=== PATIENT | female | born 1970 | race Caucasian/White ===

== ENCOUNTER 2016-10-08 12:27 | Emergency (ER) | payer MEDICAID ==
[~2016-10-08] VITALS: Ht 175.3 cm; Wt 76.7 kg
[2016-10-08 12:48] VITALS: BP 122/70
[2016-10-08] MEDS ORDERED: vitamins (12:55)
[2016-10-08 13:17] VITALS: BP 122/70
--- NOTE | 2016-10-08 14:50 | Emergency Room Report ---
History of Present Illness General Chief Complaint: General Complaint Source: Patient Present Illness HPI 46-year-old female presents to ED for evaluation. Patient states she has a history of cirrhosis and alcohol disease. Patient states she is here to get fluid from her abdomen removed. Patient has ascites. Patient states she was admitted to [facility] approximately one week ago but left. Patient will not clarify whether she was discharged or left AMA. Patient states she did not like it there so she did not want to come back. Patient states she was called back and told that she had a "blood infection" and was told to come back. Patient states she preferred to come here instead. Patient history alcohol last night. Denies any pain. Denies any fevers or chills. No other aggravating relieving factors. Denies any other assocaited symptoms. Allergies: Coded Allergies: No Known Allergies (Unverified , 10/08/16) Patient History Past Medical History: other - cirrhosis Past Surgical History: none Pertinent Family History: none Social History: Reports: alcohol use, Denies: drug use, smoking Last Menstrual Period: "None in years" Now: No Immunizations: UTD Reviewed Nursing Documentation: PMH: Agreed, PSxH: Agreed Review of Systems All Other Systems: negative except mentioned in HPI Physical Exam Vital Signs Date Time Temp Pulse Resp B/P Pulse Ox O2 Delivery O2 Flow Rate FiO2 10/08/16 12:33 98.4 108 18 122/70 95 Room Air Sp02 EP Interpretation: reviewed, normal General Appearance: no apparent distress, alert, GCS 15, non-toxic Head: normocephalic Eyes: bilateral eye PERRL, bilateral eye normal inspection ENT: normal ENT inspection Neck: normal inspection Respiratory: chest non-tender, lungs clear, normal breath sounds, speaking full sentences Cardiovascular #1: regular rate, rhythm, no edema Gastrointestinal: distended Rectal: deferred Genitourinary: no CVA tenderness Musculoskeletal: normal inspection Neurologic: alert, oriented x3, responsive, motor strength/tone normal, sensory intact, speech normal Psychiatric: normal inspection Skin: normal inspection Lymphatic: normal inspection Medical Decision Making Diagnostic Impression: Primary Impression: Ascites Qualified Codes: K70.31 - Alcoholic cirrhosis of liver with ascites ER Course 46-year-old female presents with abdominal distention here to get to fluid removed. History of ascites Differential-SBP, cirrhosis, ascites Patient based on stretcher. After initial history I was able to obtain records from [facility]. Patient had blood cultures showing staph aureus. Patient ascitic fluid showed no evidence of infection. Patient is not in pain. No fever. No clinical evidence suggestive of SBP. Therefore no emergent indication for paracentesis I explained to the patient that we would need lab work, coag studies and patient will be admitted in order to get paracentesis Patient became upset stating that she wants a paracentesis now. I explained to the patient that there is no emergent indication. Patient states she called here and was told that she would get paracentesis Patient is not being truthful. I spoke to the patient's boyfriend yesterday. He asked whether the patient could receive methadone when in the emergency room. I responded stating that patient will not receive methadone in the ER however it is up to the discretion of the admitting physician whether the patient will receive methadone. I told the patient at no point was it discussed that patient would received a paracentesis in emergency room I offered patient option for admission. Patient refuses stating she will come back tomorrow. I explained to patient that he she did have positive blood cultures. Patient states she wishes to go home. Understands the risks of leaving. Patient has competency to make her own decisions. Signed AMA form. Diagnosis - ascites Patient left AMA Last Vital Signs Date Time Temp Pulse Resp B/P Pulse Ox O2 Delivery O2 Flow Rate FiO2 10/08/16 13:17 98.4 18 122/70 95 Room Air 10/08/16 12:33 108 Status: unchanged Disposition: AGAINST MEDICAL ADVICE Condition: Stable TELMA GALVEZ M.D. Oct 08, 2016 14:50
== END 2016-10-08 13:17 | disposition left against medical advice (07) ==
LOC: EMR 13:06 → CANBEDREQ 14:45
DX: K70.31 Alcoholic cirrhosis of liver with ascites (principal)
CPT/HCPCS: 99284

== ENCOUNTER 2016-10-09 11:20 | Inpatient (IN) | payer MEDICAID ==
[~2016-10-09] VITALS: Ht 172.7 cm; Wt 73.5 kg
[~2016-10-09 11:20] MED LIST: vitamins
[2016-10-09 11:33] VITALS: BP 111/73
[2016-10-09] MEDS ORDERED: Pantoprazole Inj IV ONE (11:45)
[2016-10-09 12:38] LABS: APPEARANCE,URINE CLEAR; KETONES,URINE 1+ (NEGATIVE); LEUKOCYTE ESTERASE ,URINE 3+ (NEGATIVE); NITRITE,URINE POSITIVE (NEGATIVE); PH,URINE 6 (4.5-8.0); PROTEIN,URINE 2+ (NEGATIVE); UROBILINOGEN,URINE 8 MG/DL (0.0-1.0)
[2016-10-09 12:43] LABS: MEAN CORPUSCULAR HEMOGLOBIN 38.4 PG (27.0-31.0); MEAN CORPUSCULAR VOLUME 117 FL (80-99); MEAN PLATELET VOLUME 9.6 FL (6.5-10.1); PLATELET COUNT 120 K/UL (150-450); RED BLOOD COUNT 2.37 M/UL (4.20-5.40); RED CELL DISTRIBUTION WIDTH 11.7 % (11.6-14.8); WHITE BLOOD COUNT 10.6 K/UL (4.8-10.8)
[2016-10-09 12:45] LABS: BACTERIA,URINE FEW /HPF; ICTOTEST POSITIVE; MUCUS,URINE FEW /LPF (NONE/OCC); SQUAMOUS EPITHELIAL CELL,UR FEW /LPF (NONE/OCC); WBC,URINE 15-20 /HPF (0 - 2)
[2016-10-09 12:56] LABS: INR 1.6 (0.9-1.1); PROTHROMBIN TIME 16.7 SEC (9.30-11.50)
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
[2016-10-09] MEDS ORDERED: cefTRIAXone 1 GM in NS 55 ML IVPB ONE (13:00)
[2016-10-09 13:02] LABS: ALANINE AMINOTRANSFERASE 5 U/L (3-33); ALBUMIN/GLOBULIN RATIO 0.4 (1.0-2.7); ANION GAP 10 (5-15); ASPARTATE AMINO TRANSFERASE 131 U/L (5-40); CARBON DIOXIDE 25 mEQ/L (20-30); CHLORIDE 101 mEQ/L (98-107); CREATININE 0.5 mg/dL (0.5-0.9); GLOMERULAR FILTRATION RATE > 60 mL/min (>60); HEMOLYSIS 0; LIPASE 22 U/L (< 60); POTASSIUM 4.2 mEQ/L (3.4-4.9); SODIUM 136 mEQ/L (135-145); TOTAL PROTEIN 7.5 g/dL (6.6-8.7)
[2016-10-09 13:03] LABS: AMMONIA 84 umol/L (11-51)
[2016-10-09 13:04] LABS: TROPONIN I < 0.30 ng/mL (<=0.30)
[2016-10-09] MEDS ORDERED: Tubing IV Cassette IV ONE (13:15)
[2016-10-09] MEDS ORDERED: NS 55 ML IV ONE (13:15)
[2016-10-09 13:17] LABS: BILIRUBIN,DIRECT 3.6 mg/dL (0.1-0.3)
[2016-10-09] MEDS ORDERED: Lactulose 20gm/30ml UDC ORAL ONE (13:45)
[2016-10-09 13:55] LABS: BAND NEUTROPHILS % (MANUAL) 0 % (0-8); BASOPHILS % (MANUAL) 0 % (0-2); EOSINOPHILS % (MANUAL) 2 % (0-3); LYMPHOCYTES % (MANUAL) 21 % (20-45); MACROCYTES 1+; NEUTROPHILS % (MANUAL) 75 % (45-75); PLATELET ESTIMATE DECREASED; PLATELET MORPHOLOGY NORMAL; TOTAL CELLS COUNTED 100
[2016-10-09 13:56] LABS: HYPOCHROMASIA 1+
[2016-10-09] MEDS ORDERED: LORazepam Inj 2mg/ml 1ml IV PRN (14:00)
[2016-10-09] MEDS ORDERED: Morphine Sulfate 2mg/ml Inj IVP PRN (14:00)
[2016-10-09] MEDS ORDERED: Mylanta II UD 30ml ORAL PRN (14:00)
--- NOTE | 2016-10-09 15:07 | Diagnostic Imaging Report ---
Indications: Ascites Technique: Ultrasound used to localize optimal puncture site. Sterile prepping and draping left lower quadrant. Local anesthesia with 1% lidocaine. Under real-time ultrasound guidance, puncture peritoneal space using paracentesis needle. Stylet removed. Catheter placed to vacuum bottle suction. Total 2.1 liters of clear yellow fluid aspirated. Patient tolerated procedure well, without immediate complication. A specimen was sent to the lab Findings: Followup sonography demonstrates complete resolution of peritoneal fluid. Impression: Successful ultrasound-guided paracentesis, yielding 2.1 liters of fluid
[2016-10-09 15:30] VITALS: BP 112/63
--- NOTE | 2016-10-09 16:12 | History and Physical ---
History of Present Illness General Date patient seen: Oct 09, 2016 Reason for Hospitalization: General Complaint Present Illness HPI 46 year old lady with hx of EToH abuse, cirrhosis and recurrent ascites. treated recently at [facility]. She had endoscopy done there and the nurses stated she could from what they saw. They thought that these things could burst (it sounds like varices). In addition to that she has ascites. She's also told she had gram-positive organisms in her blood. The patient has been at home and has not been doing well. she comes to [employer] with increasing abdominal girth. Allergies: Coded Allergies: No Known Allergies (Unverified , 10/08/16) Medication History Miscellaneous Medications [vitamins], (Reported) Patient History Healthcare decision maker Resuscitation status Advanced Directive on File Past Medical/Surgical History Past Medical/Surgical History: (1) Ascites (2) Coagulopathy (3) Anemia (4) Liver failure Review of Systems All Other Systems: negative except mentioned in HPI Physical Exam General Appearance: cachetic Lines, tubes and drains: peripheral HEENT: normocephalic Neck: non-tender, normal alignment Respiratory/Chest: chest wall non-tender, lungs clear Breasts: no masses Cardiovascular/Chest: normal peripheral pulses, regular rhythm Abdomen: normal bowel sounds, soft, distended Genitourinary/Rectal: normal genital exam Skin Exam: normal pigmentation Last 24 Hour Vital Signs Date Time Temp Pulse Resp B/P Pulse Ox O2 Delivery O2 Flow Rate FiO2 10/09/16 15:34 18 112/63 96 Room Air 10/09/16 11:33 98.4 105 16 111/73 95 Room Air 10/09/16 11:27 98.4 105 16 111/73 95 Room Air Laboratory Tests Test 10/09/16 11:40 10/09/16 12:00 10/09/16 12:38 Urine Color Brown Urine Appearance Clear Urine pH 6 (4.5-8.0) Urine Specific [place] 1.015 (1.005-1.035) Urine Protein 2+ (NEGATIVE) H Urine Glucose (UA) Negative (NEGATIVE) Urine Ketones 1+ (NEGATIVE) H Urine Occult Blood 1+ (NEGATIVE) H Urine Nitrite Positive (NEGATIVE) H Urine Bilirubin 2+ (NEGATIVE) H Urine Ictotest Positive Urine Urobilinogen 8 MG/DL (0.0-1.0) H Urine Leukocyte Esterase 3+ (NEGATIVE) H Urine RBC 2-4 /HPF (0 - 2) H Urine WBC 15-20 /HPF (0 - 2) H Urine Squamous Epithelial Cells Few /LPF (NONE/OCC) Urine Bacteria Few /HPF (NONE) Urine Mucus Few /LPF (NONE/OCC) H Urine HCG, Qualitative Negative White Blood Count 10.6 K/UL (4.8-10.8) Red Blood Count 2.37 M/UL (4.20-5.40) L Hemoglobin 9.1 G/DL (12.0-16.0) L Hematocrit 27.6 % (37.0-47.0) L Mean Corpuscular Volume 117 FL (80-99) H Mean Corpuscular Hemoglobin 38.4 PG (27.0-31.0) H Mean Corpuscular Hemoglobin Concent 33.0 G/DL (32.0-36.0) Red Cell Distribution Width 11.7 % (11.6-14.8) Platelet Count 120 K/UL (150-450) L Mean Platelet Volume 9.6 FL (6.5-10.1) Neutrophils (%) (Auto) % (45.0-75.0) Lymphocytes (%) (Auto) % (20.0-45.0) Monocytes (%) (Auto) % (1.0-10.0) Eosinophils (%) (Auto) % (0.0-3.0) Basophils (%) (Auto) % (0.0-2.0) Differential Total Cells Counted 100 Neutrophils % (Manual) 75 % (45-75) Lymphocytes % (Manual) 21 % (20-45) Monocytes % (Manual) 2 % (1-10) Eosinophils % (Manual) 2 % (0-3) Basophils % (Manual) 0 % (0-2) Band Neutrophils 0 % (0-8) Platelet Estimate Decreased L Platelet Morphology Normal Hypochromasia 1+ Macrocytosis 1+ Prothrombin Time 16.7 SEC (9.30-11.50) H Prothromb Time International Ratio 1.6 (0.9-1.1) H Activated Partial Thromboplast Time 36 SEC (23-33) H Sodium Level 136 mEQ/L (135-145) Potassium Level 4.2 mEQ/L (3.4-4.9) Chloride Level 101 mEQ/L (98-107) Carbon Dioxide Level 25 mEQ/L (20-30) Anion Gap 10 (5-15) Blood Urea Nitrogen 7 mg/dL (7-23) Creatinine 0.5 mg/dL (0.5-0.9) Estimat Glomerular Filtration Rate > 60 mL/min (>60) Glucose Level 104 mg/dL (74-106) Calcium Level 8.0 mg/dL (8.6-10.2) L Total Bilirubin 5.7 mg/dL (0.0-1.2) H Direct Bilirubin 3.6 mg/dL (0.1-0.3) H Aspartate Amino Transf (AST/SGOT) 131 U/L (5-40) H Alanine Aminotransferase (ALT/SGPT) 5 U/L (3-33) Alkaline Phosphatase < 11 U/L (35-104) L Ammonia 84 umol/L (11-51) H Troponin I < 0.30 ng/mL (<=0.30) Total Protein 7.5 g/dL (6.6-8.7) Albumin 2.2 g/dL (3.5-5.2) L Globulin 5.3 g/dL Albumin/Globulin Ratio 0.4 (1.0-2.7) L Lipase 22 U/L (< 60) Urine Opiates Screen Positive (NEGATIVE) H Urine Barbiturates Screen Negative (NEGATIVE) Phencyclidine (PCP) Screen Negative (NEGATIVE) Urine Amphetamines Screen Negative (NEGATIVE) Urine Benzodiazepines Screen Positive (NEGATIVE) H Urine Cocaine Screen Negative (NEGATIVE) Urine Marijuana (THC) Screen Negative (NEGATIVE) Height (Feet): 5 Height (Inches): 10.00 Weight (Pounds): 165 Medications Current Medications Medications (Trade) Dose Ordered Sig/Rubén Route PRN Reason Start Time Stop Time Status Last Admin Dose Admin Acetaminophen (Tylenol) 650 mg Q4H PRN ORAL T>100.5 10/09/16 14:00 11/08/16 13:59 Al Hydroxide/Mg Hydroxide (Mylanta II) 30 ml Q6H PRN ORAL dyspepsia 10/09/16 14:00 11/08/16 13:59 Cefepime HCl/ Dextrose (Maxipime/D5W) 55 ml @ 110 mls/hr EVERY 8 HOURS IV 10/09/16 16:00 10/16/16 15:59 Dextrose (Dextrose 50%) STAT PRN IV Hypoglycemia 10/09/16 14:00 11/08/16 13:59 Lactulose 30 gm 30 gm EVERY 6 HOURS ORAL 10/09/16 18:00 11/08/16 17:59 Lorazepam (Ativan 2mg/ml 1ml) 0.5 mg Q4H PRN IV For Anxiety 10/09/16 14:00 10/16/16 13:59 Morphine Sulfate (Morphine Sulfate) 2 mg Q4H PRN IVP PAIN 4-10 10/09/16 14:00 10/16/16 13:59 Ondansetron HCl (Zofran) 4 mg Q6H PRN IVP Nausea & Vomiting 10/09/16 14:00 11/08/16 13:59 Polyethylene Glycol (Miralax) 17 gm HSPRN PRN ORAL Constipation 10/09/16 21:00 11/08/16 20:59 Zolpidem Tartrate (Ambien) 5 mg HSPRN PRN ORAL Insomnia 10/09/16 21:00 11/08/16 20:59 Assessment/Plan Problem List: (1) Ascites ICD Codes: R18.8 - Other ascites SNOMED: 474379560 Qualifiers: Qualified Codes: R18.8 - Other ascites (2) Liver failure ICD Codes: K72.90 - Hepatic failure, unspecified without coma SNOMED: [id number] Qualifiers: Qualified Codes: K72.00 - Acute and subacute hepatic failure without coma (3) Coagulopathy ICD Codes: D68.9 - Coagulation defect, unspecified SNOMED: 17191106 (4) Anemia ICD Codes: D64.9 - Anemia, unspecified SNOMED: [id number] Qualifiers: Qualified Codes: D64.9 - Anemia, unspecified Assessment/Plan paracentesis, GI evaluation correct coagulopathy dvt prophylaxis prbc prn SANJAY SANTOS Oct 09, 2016 16:12
[2016-10-09] MEDS: Lactulose 20gm/30ml UDC ORAL SCH ×2 (18:00→23:45)
[2016-10-09] MEDS: Cefepime HCl 1 GM in D5W 55 ML IV SCH ×2 (18:00→23:44)
[2016-10-09 19:15] LABS: APPEARANCE, BODY FLUID HAZY; BD FL SOURCE PARACENTESIS; BD FL VOLUME 28 mL; BODY FLUID NUCLEATED CELLS 73 /CUMM
[2016-10-09 19:16] LABS: BODY FLUID RBC 218 /CUMM; MONONUCLEAR WBC 70 %; POLYMORPHONUCLEAR WBC 13 %
[2016-10-09 20:00] VITALS: BP 124/69
[2016-10-09] MEDS ORDERED: Zolpidem 5mg tab ORAL PRN (21:00)
[2016-10-09] MEDS ORDERED: Miralax 17gm pkt ORAL PRN (21:00)
[2016-10-10] VITALS: BP 110/62
[2016-10-10 04:00] VITALS: BP 112/64
[2016-10-10] MEDS: Lactulose 20gm/30ml UDC ORAL SCH ×3 (05:43→18:32)
[2016-10-10] MEDS: Cefepime HCl 1 GM in D5W 55 ML IV SCH ×3 (05:44→21:38)
[2016-10-10 06:40] LABS: MEAN CORPUSCULAR HEMOGLOBIN 38.6 PG (27.0-31.0); MEAN CORPUSCULAR HGB CONC 32.8 G/DL (32.0-36.0); MEAN CORPUSCULAR VOLUME 118 FL (80-99); PLATELET COUNT 115 K/UL (150-450); RED BLOOD COUNT 2.42 M/UL (4.20-5.40); RED CELL DISTRIBUTION WIDTH 11.9 % (11.6-14.8); WHITE BLOOD COUNT 8.8 K/UL (4.8-10.8)
[2016-10-10 07:36] LABS: AMMONIA 55 umol/L (11-51)
[2016-10-10 07:54] VITALS: BP 111/65
[2016-10-10 08:14] LABS: ALANINE AMINOTRANSFERASE 24 U/L (3-33); ALBUMIN/GLOBULIN RATIO 0.3 (1.0-2.7); ANION GAP 10 (5-15); ASPARTATE AMINO TRANSFERASE 125 U/L (5-40); CALCIUM 8.1 mg/dL (8.6-10.2); CARBON DIOXIDE 27 mEQ/L (20-30); CHLORIDE 101 mEQ/L (98-107); CHOLESTEROL 135 mg/dL (< 200); CHOLESTEROL/HDL RATIO 7.1 (3.3-4.4); CREATININE 0.4 mg/dL (0.5-0.9); GLOMERULAR FILTRATION RATE > 60 mL/min (>60); HEMOLYSIS 75; LDL CHOLESTEROL (CALC.) 95 mg/dL (60-99); POTASSIUM 4.6 mEQ/L (3.4-4.9); SODIUM 138 mEQ/L (135-145); TOTAL PROTEIN 7.2 g/dL (6.6-8.7)
[2016-10-10 08:32] LABS: BILIRUBIN,DIRECT 3.2 mg/dL (0.1-0.3)
[2016-10-10] MEDS ORDERED: NS 275ml ONE (09:34)
[2016-10-10] MEDS ORDERED: Tubing IV Secondary IV ONE (09:34)
[2016-10-10 12:21] VITALS: BP 102/65
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
--- NOTE | 2016-10-10 15:44 | Pulmonology Progress Note ---
Assessment/Plan Problems: (1) Ascites (2) Liver failure (3) Coagulopathy (4) Anemia Assessment/Plan s/p paracentesis GI f/u endoscopy in am social service to see the pt Subjective ROS Limited/Unobtainable: No Interval Events: had paracentesis Constitutional: Reports: no symptoms Allergies: Coded Allergies: No Known Allergies (Unverified , 10/08/16) Objective Last 24 Hour Vital Signs Date Time Temp Pulse Resp B/P Pulse Ox O2 Delivery O2 Flow Rate FiO2 10/10/16 12:21 97.9 104 18 102/65 99 Room Air 10/10/16 07:54 98.1 110 18 111/65 99 Room Air 10/10/16 04:00 98.9 98 18 112/64 94 Room Air 10/10/16 00:00 99.0 103 18 110/62 94 Room Air 10/09/16 20:00 99.9 103 18 124/69 96 Room Air Intake and Output 10/09/16 10/10/16 19:00 07:00 Intake Total 55 ml Balance 55 ml Intake IV Total 55 ml # Voids 1 # Bowel Movements 3 General Appearance: cachetic HEENT: normocephalic, atraumatic, other - icteric Respiratory/Chest: chest wall non-tender, lungs clear Breasts: no masses Cardiovascular: normal rate Abdomen: normal bowel sounds, soft, non tender Genitourinary: normal external genitalia Extremities: no clubbing 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 Lymphatic: no neck adenopathy Microbiology Date/Time Source Procedure Growth Status 10/09/16 11:40 Urine,Clean Catch Urine Culture - Preliminary Gram Negative Bacillus 1 Resulted 10/09/16 14:06 Abdominal Fluid Gram Stain - Final Resulted 10/09/16 14:06 Abdominal Fluid Body Fluid Culture - Preliminary NO GROWTH AFTER 24 HOURS Resulted Laboratory Tests 10/10/16 05:55: White Blood Count 8.8, Red Blood Count 2.42L, Hemoglobin 9.4L, Hematocrit 28.5L , Mean Corpuscular Volume 118H, Mean Corpuscular Hemoglobin 38.6H, Mean Corpuscular Hemoglobin Concent 32.8, Red Cell Distribution Width 11.9, Platelet Count 115L, Mean Platelet Volume 9.0, Neutrophils (%) (Auto) , Lymphocytes (%) ( Auto) , Monocytes (%) (Auto) , Eosinophils (%) (Auto) , Basophils (%) (Auto) , Sodium Level 138, Potassium Level 4.6, Chloride Level 101, Carbon Dioxide Level 27, Anion Gap 10, Blood Urea Nitrogen 6L, Creatinine 0.4L, Estimat Glomerular Filtration Rate > 60, Glucose Level 99, Calcium Level 8.1L, Total Bilirubin 6.1H , Direct Bilirubin 3.2H, Aspartate Amino Transf (AST/SGOT) 125H, Alanine Aminotransferase (ALT/SGPT) 24, Alkaline Phosphatase 187H, Ammonia 55H, Total Protein 7.2, Albumin 2.0L, Globulin 5.2, Albumin/Globulin Ratio 0.3L, Triglycerides Level 104, Cholesterol Level 135, LDL Cholesterol 95, HDL Cholesterol 19, Cholesterol/HDL Ratio 7.1H, Thyroid Stimulating Hormone (TSH) 9.290H Current Medications Medications (Trade) Dose Ordered Sig/Rubén Route PRN Reason Start Time Stop Time Status Last Admin Dose Admin Acetaminophen (Tylenol) 650 mg Q4H PRN ORAL T>100.5 10/09/16 14:00 11/08/16 13:59 Al Hydroxide/Mg Hydroxide (Mylanta II) 30 ml Q6H PRN ORAL dyspepsia 10/09/16 14:00 11/08/16 13:59 Cefepime HCl/ Dextrose (Maxipime/D5W) 55 ml @ 110 mls/hr EVERY 8 HOURS IV 10/09/16 16:00 10/16/16 15:59 10/10/16 14:26 Dextrose (Dextrose 50%) STAT PRN IV Hypoglycemia 10/09/16 14:00 11/08/16 13:59 Lactulose 30 gm 30 gm EVERY 6 HOURS ORAL 10/09/16 18:00 11/08/16 17:59 10/10/16 12:11 Lorazepam (Ativan 2mg/ml 1ml) 0.5 mg Q4H PRN IV For Anxiety 10/09/16 14:00 10/16/16 13:59 Morphine Sulfate (Morphine Sulfate) 2 mg Q4H PRN IVP PAIN 4-10 10/09/16 14:00 10/16/16 13:59 Ondansetron HCl (Zofran) 4 mg Q6H PRN IVP Nausea & Vomiting 10/09/16 14:00 11/08/16 13:59 Polyethylene Glycol (Miralax) 17 gm HSPRN PRN ORAL Constipation 10/09/16 21:00 11/08/16 20:59 Zolpidem Tartrate (Ambien) 5 mg HSPRN PRN ORAL Insomnia 10/09/16 21:00 11/08/16 20:59 SANJAY SANTOS Oct 10, 2016 15:44
[2016-10-10 16:15] VITALS: BP 113/73
[2016-10-10 16:16] LABS: PROTEIN, BODY FLUID 0.9 g/dL (.)
[2016-10-10] MEDS ORDERED: Phytonadione 1 MG in D5W 55 ML IVPB ONE (17:00)
[2016-10-10 20:00] VITALS: BP 107/62
[2016-10-10] MEDS: Pantoprazole Inj IVP SCH (20:15)
[2016-10-10] MEDS ORDERED: D5 1/2NS 1,000 ML IV SCH (21:30)
[2016-10-11] VITALS (7 sets, daily range): BP systolic 90–110; BP diastolic 57–73
[2016-10-11] MEDS: Cefepime HCl 1 GM in D5W 55 ML IV SCH (05:37)
[2016-10-11] MEDS: Lactulose 20gm/30ml UDC ORAL SCH ×3 (06:00→12:00)
[2016-10-11 06:57] LABS: INR 1.8 (0.9-1.1); PROTHROMBIN TIME 19.4 SEC (9.30-11.50)
[2016-10-11 07:02] LABS: ALANINE AMINOTRANSFERASE 23 U/L (3-33); ALBUMIN/GLOBULIN RATIO 0.3 (1.0-2.7); ANION GAP 5 (5-15); ASPARTATE AMINO TRANSFERASE 91 U/L (5-40); CALCIUM 7.9 mg/dL (8.6-10.2); CARBON DIOXIDE 29 mEQ/L (20-30); CHLORIDE 104 mEQ/L (98-107); CREATININE 0.5 mg/dL (0.5-0.9); GLOMERULAR FILTRATION RATE > 60 mL/min (>60); HEMOLYSIS 0; POTASSIUM 3.9 mEQ/L (3.4-4.9); SODIUM 138 mEQ/L (135-145); TOTAL PROTEIN 6.8 g/dL (6.6-8.7)
[2016-10-11 07:14] LABS: MEAN CORPUSCULAR HEMOGLOBIN 39.3 PG (27.0-31.0); MEAN CORPUSCULAR HGB CONC 33.1 G/DL (32.0-36.0); MEAN CORPUSCULAR VOLUME 119 FL (80-99); MEAN PLATELET VOLUME 10.2 FL (6.5-10.1); PLATELET COUNT 114 K/UL (150-450); RED BLOOD COUNT 2.31 M/UL (4.20-5.40); RED CELL DISTRIBUTION WIDTH 11.9 % (11.6-14.8); WHITE BLOOD COUNT 7.5 K/UL (4.8-10.8)
[2016-10-11 07:17] LABS: BILIRUBIN,DIRECT 3.4 mg/dL (0.1-0.3)
[2016-10-11 08:42] LABS: BASOPHILS % (MANUAL) 1 % (0-2); EOSINOPHILS % (MANUAL) 4 % (0-3); LYMPHOCYTES % (MANUAL) 18 % (20-45); NEUTROPHILS % (MANUAL) 72 % (45-75); TOTAL CELLS COUNTED 100
[2016-10-11 08:43] LABS: ANISOCYTOSIS 1+; BAND NEUTROPHILS % (MANUAL) 0 % (0-8); HYPOCHROMASIA 2+; MACROCYTES 3+; PLATELET ESTIMATE DECREASED; PLATELET MORPHOLOGY NORMAL
--- NOTE | 2016-10-11 08:49 | Physician Query ---
PLEASE COMPLETE DOCUMENT BEFORE SIGNING Dear _SANJAY BRYANT___ Date: __10/11/2016_ Probation And Patrol Agent/CDS Name: _GUANAKO GONZALEZ___ Probation And Patrol Agent/CDS Phone No.: __[phone]__ Exercise your independent professional judgment when responding to the query. Questions asked do not imply a particular answer is desired or expected. We greatly appreciate your clarification on this issue. CLINICAL DOCUMENTATION STATES: Present Illness: 46 year old lady with hx of EToH abuse, cirrhosis and recurrent ascites. General Appearance: cachectic CLINICAL FINDINGS SHOW: Albumin: 2.2, 2.2, 1.9 g/dl (10/09/16, 10/10/16, 10/11/16) Albumin/Globulin ratio: 0.4, 0.3, 0.3 (10/09/16, 10/10/16, 10/11/16) Please select the most appropriate option: [] Mild [] Moderate [] Protein/Calorie Malnutrition [] Protein Malnutrition >Serum albumin 2.8 to 3.4 g/dL or Pre-albumin 5 to 7 mg/dl (3) >Inadequate nutritional intake (1, 2, 3, 4) >NPO > 5 days >Weight loss: 5% in 1 month or 7.5% in 3 months or 10% in 6 months (1,3,4) >BMI 16 to 18.4 or Weight <90 of ideal body weight (1,2,3,4) [] Serum Malnutrition (Protein/Calorie) [] Severe Protein Malnutrition >Serum Albumin < 2.8 g/dL (1,2) >Lymphocytes < 1500/uL (2) >Inadequate nutritional intake3 , high stress e.g. major trauma, sepsis, pancreatitis, diamond etc. >Decubitus ulcers (1,2) , skin breakdown(2), easy hair pluckability >Weight <80% standard for height (2) >Triceps skin fold <3 mm2 >Mid-arm muscle circumference <25 cm2 >Creatinine-height index <60% standard (2) _ [] Hypoalbuminemia [] Emancipated w/ Malnutrition [] [place] (rare in [place]) [] Marasmus [] Other [] Unable to determine [] Not Applicable Condition Present on Admission: [] Yes [] No [ ] Unable to determine Please also document in your Progress Notes and/or Discharge Summary and indicate if the condition was present on admission. SANJAY SANTOS M.D. 10/11/2016 8:47am References: 1 [facility] [place] Board. (2007). Nutritional support strategy for protein -energy malnutrition in the elderly. Clinical Practice Guidelines. 2 Shweta Holliday (2011). Malnutrition and nutritional assessment. In [employer] [place] (18th Ed.) [employer] Principle of Internal Medicine ([phone]) [place], [place]: [facility] 3 Brandan [address]. (2001). Clinical Nutrition: Protein-energy malnutrition in the inpatient. [place] [employer] Journal, vol. 165 no. 10 (pp. 4947- 6515 ). 4 Umm Westfall (2012). Geriactric Nutrition: Nutritional Issues in Older Adults. [email or web address]
[2016-10-11] MEDS: Pantoprazole Inj IVP SCH (09:00)
--- NOTE | 2016-10-11 09:23 | Pre-Procedure Note/Attestation ---
Pre-Procedure Note/Attestation Complete Prior to Procedure Planned Procedure: not applicable Procedure Narrative: egd Indications for Procedure Pre-Operative Diagnosis: cirrhosis, esoph varices Attestation I attest that I discussed the nature of the procedure; its benefits; risks and complications; and alternatives (and the risks and benefits of such alternatives ), prior to the procedure, with the patient (or the patient's legal hvac sales representative). I attest that, if there was a reasonable possibility of needing a blood transfusion, the patient (or the patient's legal hvac sales representative) was given the [facility] standardized written summary, pursuant to the [place] Blood Safety Act ([place] Health and Safety Code # 1645, as amended). I attest that I re-evaluated the patient just prior to the surgery and that there has been no change in the patient's H&P, except as documented below: JOSSY MINAYA Oct 11, 2016 09:23
[2016-10-11] MEDS ORDERED: Lidocaine 1% MPF 10mg/ml 5ml ONE (09:30)
[2016-10-11] MEDS ORDERED: Propofol 10mg/ml 20ml IV ONE (09:30)
--- NOTE | 2016-10-11 09:45 | Endoscopy Procedure Note ---
Endoscopy Procedure Note Indication for Procedure: esoph varices Procedures Performed: EGD Operative Findings/Diagnosis: esoph varices Specimen: yes Pt Tolerated Procedure Well: Yes Estimated Blood Loss: none Anesthesiologist: frederick Anesthesia: MAC Implant(s) used?: No 50 yrs or older w/o bx or poly: Not Applicable 10yrs. F/U not recommended: Not Applicable JOSSY MINAYA Oct 11, 2016 09:45
--- NOTE | 2016-10-11 09:51 | Anethesia Preoperative Eval ---
Anesthesia Pre-op PMH/ROS General Date of Evaluation: Oct 11, 2016 Time of Evaluation: 07:00 Anesthesiologist: baljit ASA Score: ASA 3 Mallampati Score Class I : Soft palate, uvula, fauces, pillars visible Class II: Soft palate, uvula, fauces visible Class III: Soft palate, base of uvula visible Class IV: Only hard plate visible Mallampati Classification: Class II Surgeon: shweta Diagnosis: anemia Surgical Procedure: egd Anesthesia History: none Social History: alcohol use Family History: no anesthesia problems Allergies: Coded Allergies: No Known Allergies (Unverified , 10/08/16) Medications: see eMAR Past Medical History Gastrointestinal/Genitourinary: Reports: other - ascites Hematology/Immune: Reports: anemia Anesthesia Pre-op Phys. Exam Physician Exam Last Vital Signs Date Time Temp Pulse Resp B/P Pulse Ox O2 Delivery O2 Flow Rate FiO2 10/11/16 08:37 97.0 79 18 95/57 95 Room Air Constitutional: NAD Neurologic: CN 2-12 intact Cardiovascular: RRR Respiratory: CTA Gastrointestinal: S/NT/ND, other - distended, ascites Airway Exam Mallampati Score: Class II MO: full Neck: supple TMD: 3fb ROM: full Teeth: missing Anesthesia Pre-op A/P Labs Labs Test 10/09/16 11:40 10/09/16 12:00 10/09/16 12:38 10/09/16 14:06 Urine Color Brown Urine Appearance Clear Urine pH 6 (4.5-8.0) Urine Specific [place] 1.015 (1.005-1.035) Urine Protein 2+ (NEGATIVE) Urine Glucose (UA) Negative (NEGATIVE) Urine Ketones 1+ (NEGATIVE) Urine Occult Blood 1+ (NEGATIVE) Urine Nitrite Positive (NEGATIVE) Urine Bilirubin 2+ (NEGATIVE) Urine Ictotest Positive Urine Urobilinogen 8 MG/DL (0.0-1.0) Urine Leukocyte Esterase 3+ (NEGATIVE) Urine RBC 2-4 /HPF (0 - 2) Urine WBC 15-20 /HPF (0 - 2) Urine Squamous Epithelial Cells Few /LPF (NONE/OCC) Urine Bacteria Few /HPF (NONE) Urine Mucus Few /LPF (NONE/OCC) Urine HCG, Qualitative Negative White Blood Count 10.6 K/UL (4.8-10.8) Red Blood Count 2.37 M/UL (4.20-5.40) Hemoglobin 9.1 G/DL (12.0-16.0) Hematocrit 27.6 % (37.0-47.0) Mean Corpuscular Volume 117 FL (80-99) Mean Corpuscular Hemoglobin 38.4 PG (27.0-31.0) Mean Corpuscular Hemoglobin Concent 33.0 G/DL (32.0-36.0) Red Cell Distribution Width 11.7 % (11.6-14.8) Platelet Count 120 K/UL (150-450) Mean Platelet Volume 9.6 FL (6.5-10.1) Neutrophils (%) (Auto) % (45.0-75.0) Lymphocytes (%) (Auto) % (20.0-45.0) Monocytes (%) (Auto) % (1.0-10.0) Eosinophils (%) (Auto) % (0.0-3.0) Basophils (%) (Auto) % (0.0-2.0) Differential Total Cells Counted 100 Neutrophils % (Manual) 75 % (45-75) Lymphocytes % (Manual) 21 % (20-45) Monocytes % (Manual) 2 % (1-10) Eosinophils % (Manual) 2 % (0-3) Basophils % (Manual) 0 % (0-2) Band Neutrophils 0 % (0-8) Other Cell Type Platelet Estimate Decreased Platelet Morphology Normal Hypochromasia 1+ Macrocytosis 1+ Prothrombin Time 16.7 SEC (9.30-11.50) Prothromb Time International Ratio 1.6 (0.9-1.1) Activated Partial Thromboplast Time 36 SEC (23-33) Sodium Level 136 mEQ/L (135-145) Potassium Level 4.2 mEQ/L (3.4-4.9) Chloride Level 101 mEQ/L (98-107) Carbon Dioxide Level 25 mEQ/L (20-30) Anion Gap 10 (5-15) Blood Urea Nitrogen 7 mg/dL (7-23) Creatinine 0.5 mg/dL (0.5-0.9) Estimat Glomerular Filtration Rate > 60 mL/min (>60) Glucose Level 104 mg/dL (74-106) Calcium Level 8.0 mg/dL (8.6-10.2) Total Bilirubin 5.7 mg/dL (0.0-1.2) Direct Bilirubin 3.6 mg/dL (0.1-0.3) Aspartate Amino Transf (AST/SGOT) 131 U/L (5-40) Alanine Aminotransferase (ALT/SGPT) 5 U/L (3-33) Alkaline Phosphatase < 11 U/L (35-104) Ammonia 84 umol/L (11-51) Troponin I < 0.30 ng/mL (<=0.30) Total Protein 7.5 g/dL (6.6-8.7) Albumin 2.2 g/dL (3.5-5.2) Globulin 5.3 g/dL Albumin/Globulin Ratio 0.4 (1.0-2.7) Lipase 22 U/L (< 60) Urine Opiates Screen Positive (NEGATIVE) Urine Barbiturates Screen Negative (NEGATIVE) Phencyclidine (PCP) Screen Negative (NEGATIVE) Urine Amphetamines Screen Negative (NEGATIVE) Urine Benzodiazepines Screen Positive (NEGATIVE) Urine Cocaine Screen Negative (NEGATIVE) Urine Marijuana (THC) Screen Negative (NEGATIVE) Body Fluid Source Paracentesis Body Fluid Volume 28 mL Body Fluid Appearance Hazy Body Fluid RBC 218 /CUMM Body Fluid Total Nucleated Cells 73 /CUMM Body Fluid Polynuclear WBCs (%) 13 % Body Fluid Mononuclear WBCs (%) 70 % Body Fluid Mesothelial Cells (%) 17 % Body Fluid Glucose 121 mg/dL (.) Body Fluid Total Protein 0.9 g/dL (.) Body Fluid Albumin 0.4 g/dL (.) Body Fluid Comment Test 10/10/16 05:55 10/11/16 06:15 White Blood Count 8.8 K/UL (4.8-10.8) 7.5 K/UL (4.8-10.8) Red Blood Count 2.42 M/UL (4.20-5.40) 2.31 M/UL (4.20-5.40) Hemoglobin 9.4 G/DL (12.0-16.0) 9.1 G/DL (12.0-16.0) Hematocrit 28.5 % (37.0-47.0) 27.5 % (37.0-47.0) Mean Corpuscular Volume 118 FL (80-99) 119 FL (80-99) Mean Corpuscular Hemoglobin 38.6 PG (27.0-31.0) 39.3 PG (27.0-31.0) Mean Corpuscular Hemoglobin Concent 32.8 G/DL (32.0-36.0) 33.1 G/DL (32.0-36.0) Red Cell Distribution Width 11.9 % (11.6-14.8) 11.9 % (11.6-14.8) Platelet Count 115 K/UL (150-450) 114 K/UL (150-450) Mean Platelet Volume 9.0 FL (6.5-10.1) 10.2 FL (6.5-10.1) Neutrophils (%) (Auto) % (45.0-75.0) % (45.0-75.0) Lymphocytes (%) (Auto) % (20.0-45.0) % (20.0-45.0) Monocytes (%) (Auto) % (1.0-10.0) % (1.0-10.0) Eosinophils (%) (Auto) % (0.0-3.0) % (0.0-3.0) Basophils (%) (Auto) % (0.0-2.0) % (0.0-2.0) Sodium Level 138 mEQ/L (135-145) 138 mEQ/L (135-145) Potassium Level 4.6 mEQ/L (3.4-4.9) 3.9 mEQ/L (3.4-4.9) Chloride Level 101 mEQ/L (98-107) 104 mEQ/L (98-107) Carbon Dioxide Level 27 mEQ/L (20-30) 29 mEQ/L (20-30) Anion Gap 10 (5-15) 5 (5-15) Blood Urea Nitrogen 6 mg/dL (7-23) 7 mg/dL (7-23) Creatinine 0.4 mg/dL (0.5-0.9) 0.5 mg/dL (0.5-0.9) Estimat Glomerular Filtration Rate > 60 mL/min (>60) > 60 mL/min (>60) Glucose Level 99 mg/dL (74-106) 121 mg/dL (74-106) Calcium Level 8.1 mg/dL (8.6-10.2) 7.9 mg/dL (8.6-10.2) Total Bilirubin 6.1 mg/dL (0.0-1.2) 6.0 mg/dL (0.0-1.2) Direct Bilirubin 3.2 mg/dL (0.1-0.3) 3.4 mg/dL (0.1-0.3) Aspartate Amino Transf (AST/SGOT) 125 U/L (5-40) 91 U/L (5-40) Alanine Aminotransferase (ALT/SGPT) 24 U/L (3-33) 23 U/L (3-33) Alkaline Phosphatase 187 U/L (35-104) 175 U/L (35-104) Ammonia 55 umol/L (11-51) Total Protein 7.2 g/dL (6.6-8.7) 6.8 g/dL (6.6-8.7) Albumin 2.0 g/dL (3.5-5.2) 1.9 g/dL (3.5-5.2) Globulin 5.2 g/dL 4.9 g/dL Albumin/Globulin Ratio 0.3 (1.0-2.7) 0.3 (1.0-2.7) Triglycerides Level 104 mg/dL (< 150) Cholesterol Level 135 mg/dL (< 200) LDL Cholesterol 95 mg/dL (60-99) HDL Cholesterol 19 mg/dL (> 60) Cholesterol/HDL Ratio 7.1 (3.3-4.4) Thyroid Stimulating Hormone (TSH) 9.290 uIU/mL (0.300-4.500) Differential Total Cells Counted 100 Neutrophils % (Manual) 72 % (45-75) Lymphocytes % (Manual) 18 % (20-45) Monocytes % (Manual) 5 % (1-10) Eosinophils % (Manual) 4 % (0-3) Basophils % (Manual) 1 % (0-2) Band Neutrophils 0 % (0-8) Platelet Estimate Decreased Platelet Morphology Normal Hypochromasia 2+ Anisocytosis 1+ Macrocytosis 3+ Prothrombin Time 19.4 SEC (9.30-11.50) Prothromb Time International Ratio 1.8 (0.9-1.1) Activated Partial Thromboplast Time 39 SEC (23-33) Risk Assessment & Plan Assessment: anemia Plan: egd Status Change Before Surgery: No Pre-Antibiotics Drug: BRUNO Baca Oct 11, 2016 09:51
--- NOTE | 2016-10-11 09:55 | Immediate Post-Op Evaluation ---
Immediate Post-Op Evalulation Immediate Post-Op Evalulation Procedure: egd Date of Evaluation: Oct 11, 2016 Time of Evaluation: 09:53 IV Fluids: .9 ns 200ml Blood Products: none Estimated Blood Loss: negligible Blood Pressure Systolic: 107 Blood Pressure Diastolic: 79 Pulse Rate: 87 Respiratory Rate: 18 O2 Sat by Pulse Oximetry: 100 Temperature (Fahrenheit): 97.9 Pain Score (1-10): 0 Nausea: No Patient Status: awake, reacts, patent Hydration Status: adequate Drug: BRUNO Baca Oct 11, 2016 09:55
--- NOTE | 2016-10-11 09:57 | 48 Hour Post Anesthesia Eval ---
Post Anesthesia Evaluation Procedure: egd Date of Evaluation: Oct 11, 2016 Time of Evaluation: 09:55 Blood Pressure Systolic: 109 0: 73 Pulse Rate: 86 Respiratory Rate: 18 Temperature (Fahrenheit): 97.9 O2 Sat by Pulse Oximetry: 100 Airway: patent Nausea: No Vomiting: No Pain Intensity: 0 Hydration Status: adequate Cardiopulmonary Status: stable Mental Status/LOC: patient returned to baseline Post-Anesthesia Complications: none Follow-up care needed: N/A BRUNO HEATON Oct 11, 2016 09:57
[2016-10-11] MEDS ORDERED: Atropine Inj 1mg/10ml Syr IV PRN (10:00)
[2016-10-11] MEDS ORDERED: Hydromorphone 0.5mg/0.5ml inj IVP PRN (10:00)
[2016-10-11] MEDS ORDERED: Midazolam 2mg/2ml Inj IVP PRN (10:00)
[2016-10-11] MEDS ORDERED: DiphenhydrAMINE 50mg/ml Inj IVP PRN (10:00)
[2016-10-11] MEDS ORDERED: FUROSEMIDE40 MG ORAL (12:04)
[2016-10-11] MEDS ORDERED: PROPRANOLOL HCL10 MG ORAL (12:04)
[2016-10-11] MEDS ORDERED: SPIRONOLACTONE25 MG ORAL (12:04)
[2016-10-11] MEDS ORDERED: Propranolol 10mg tab ORAL SCH (14:00)
--- NOTE | 2016-10-11 21:40 | Procedure Note ---
DATE OF PROCEDURE: 10/11/2016 SURGEON: Fito Hendrix M.D. PROCEDURE: Upper endoscopy with biopsy. ANESTHESIA: Per Dr. Leandra Pulido. INSTRUMENT: Olympus adult flexible upper endoscope and colonoscope. INDICATION: Cirrhosis and esophageal varices. REASON FOR PROCEDURE: The procedure, risks, benefits, and possible consequences, including hemorrhage, aspiration, perforation and infection, and alternative treatments, were explained to the patient/legal guardian by Dr. Fito Hendrix and the patient/legal guardian understood and accepted these risks. DESCRIPTION OF PROCEDURE: After informed consent was obtained and the patient was adequately sedated, Olympus upper endoscope was advanced from mouth into the second portion of the duodenum and retroflexion was performed in the stomach. The patient had evidence of esophageal varices, grade 3, at least in the distal esophagus. Given INR of 1.8 and no history of gastrointestinal bleeding. We did not band this varices. The patient had moderate to severe portal hypertensive gastropathy. Random biopsy from antrum was obtained. The patient tolerated the procedure without any complication. There is no evidence of any gastric varices. SUMMARY OF FINDINGS: 1. Esophageal varices. No banding was performed given INR 1.8. 2. Portal hypertensive gastropathy. RECOMMENDATIONS: 1. Follow up biopsies and treat accordingly. 2. The patient to be on Lasix and Aldactone. 3. The patient to be on propranolol. 4. The patient request another paracentesis, will order. 5. The patient is to follow as an outpatient. 6. The patient is still drinking and not a candidate for transplant evaluation. I want to thank, Dr. Poon, for this kind referral. Fito Hendrix M.D. DR: ALESSANDRO JOB#: [id number] CC: Cecy Poon M.D.; Fax#: [phone]
[2016-10-12 07:03] LABS: BD FL VOLUME 28 mL
[2016-10-12 07:04] LABS: BD FL SOURCE PARACENTESIS; LDH, BODY FLUID 79 U/L
[2016-10-12] MEDS ORDERED: Furosemide 40mg tab ORAL SCH (09:00)
[2016-10-12] MEDS ORDERED: Spironolactone 50mg tab ORAL SCH (09:00)
--- NOTE | 2016-10-12 12:53 | Diagnostic Imaging Report ---
APPROVED REPORT CPT Code: 00258 Present Symptoms Comments: Swelling BILATERAL: Imaging reveals a patent deep venous system bilaterally. There is no evidence of thrombus within the femoral, popliteal or tibial segments. The greater saphenous veins are also within normal limits. Doppler indicates normal spontaneous flow within these segments.
--- NOTE | 2016-10-12 17:45 | Discharge Summary ---
Discharge Summary Hospital Course Date of Admission Oct 09, 2016 at 12:04 Date of Discharge Oct 11, 2016 at 12:30 Admitting Diagnosis liver failure/ ascites HPI Ethel Riley is a 46 year old female who was admitted on Oct 09, 2016 at 12: 04 for Lifer Failure, Ascites Hospital Course [id number] Discharge Discharge Disposition Patient was discharged to Home (01) Discharge Diagnoses: Anahi Gardner NP Oct 12, 2016 17:45
--- NOTE | 2016-10-13 09:31 | Discharge Summary 2 SIG ---
DATE OF ADMISSION: 10/09/2016 DATE OF DISCHARGE: 10/11/2016 CONSULTANTS: Fito Hendrix M.D. BRIEF HOSPITAL COURSE: The patient is a 46-year-old female with history of ETOH abuse, cirrhosis, and recurrent ascites, recently treated at [facility]. She had endoscopy done and was treated for ascites and blood infection with gram-positive bacteria. On evaluation at ED, the patient presented with ascites and jaundice. Laboratories showed low hemoglobin of 9.1, hematocrit 27, platelet count was 120,000. INR 1.6. Ammonia was elevated to 84. AST 151 and ALT 5. She had a urine toxicology done that showed positive benzodiazepines and opiates and urine with pyuria. She had paracenteses done yielding 2.1 liters of fluid. She was then admitted to medical floor for ascites, liver failure, coagulopathy, and anemia. Dr. Hendrix was consulted. EGD at [facility] was reviewed. The patient had two large esophageal varices noted from the gastroesophageal junction at 42 cm and 32 cm and mild portal hypertension was seen. She was given vitamin K and was given proton pump inhibitors b.i.d. She was placed on NPO and underwent EGD on 10/11/2016. Findings showed an esophageal varices. No banding was performed given INR of 1.8 and no history of GI bleed. The patient was given propranolol, Lasix, and Aldactone. The patient admits to still drinking and therefore, is not a candidate for transplant evaluation. The patient was eventually discharged home. FINAL DIAGNOSES: 1. Ascites. 2. Liver failure. 3. Coagulopathy. 4. Anemia. 5. Esophageal varices. 6. Portal hypertensive gastropathy. 7. Severe protein-calorie malnutrition. Cecy Poon M.D. I have been assigned to dictate discharge summary on this account and I was not involved in the patient's management. Anahi Gardner N.P. DR: Vlad JOB#: [id number] CC: MAT
== END 2016-10-11 12:30 | disposition home or self-care (01) | DRG 279 ==
LOC: EMR 11:59 → 4W 12:04 → EDBEDREQ 14:05
PROC: 0W9G3ZZ Drainage of Peritoneal Cavity, Percutaneous Approach (ICD-10-PCS; 2016-10-09)
PROC: 0DB68ZX Excision of Stomach, Via Natural or Artificial Opening Endoscopic, Diagnostic (ICD-10-PCS; principal; 2016-10-11 09:33)
DX: K72.00 Acute and subacute hepatic failure without coma (principal); E43 Unspecified severe protein-calorie malnutrition; D68.9 Coagulation defect, unspecified; I85.10 Secondary esophageal varices without bleeding; R18.8 Other ascites; K74.60 Unspecified cirrhosis of liver; K76.6 Portal hypertension; D64.9 Anemia, unspecified; F10.10 Alcohol abuse, uncomplicated; K31.89 Other diseases of stomach and duodenum; Z68.24 Body mass index [BMI] 24.0-24.9, adult
CPT/HCPCS: 36415; 76942; 80053; 80061; 80300; 81003; 81025; 82140; 82248; 83615; 83690; 84443; 84484; 85007; 85025; 85610; 85730; 86850; 86900; 86901; 87040; 87070; 87086; 87181; 87205; 88104; 89051; 93005; 93970; 94003; 94150; J2405; J3430

== ENCOUNTER 2016-10-21 15:49 | Emergency (ER) | payer MEDICAID ==
[~2016-10-21] VITALS: Ht 175.3 cm; Wt 72.6 kg
[~2016-10-21 15:49] MED LIST changes: +FUROSEMIDE40 MG ORAL; +PROPRANOLOL HCL10 MG ORAL; +SPIRONOLACTONE25 MG ORAL
[2016-10-21] MEDS ORDERED: Pantoprazole Inj IV ONE (16:45)
--- NOTE | 2016-10-21 17:12 | Emergency Room Report ---
History of Present Illness General Chief Complaint: Pain Source: Patient Present Illness HPI Patient c/o RUQ pain. Cirrhosis and ascites. Admitted by me recently - 10/09. The pain is constant /10 RUQ, not radiate, aching. No prescribed medications taken. No fevers. No vomiting but nausea. Her abdomen has swollen, but less than when admitted. She is taking Aldactone and is urinating "constantly". No dysuria or hematuria. No SOB. She was told she has 2 years to live. She has continued to drink and use drugs. She is somewhat depressed but not suicidal. Her thinking is occasionally fuzzy. H/O possible varices. No vomit blood or melena. Stool is howell. Easy bruising. No head trauma. She is followed by a GI specialist at [facility]. Allergies: Coded Allergies: No Known Allergies (Unverified , 10/08/16) Patient History Past Medical History: see triage record Social History: Reports: alcohol use, drug use Social History Narrative lives with pets Reviewed Nursing Documentation: PMH: Agreed, PSxH: Agreed Nursing Documentation-PMH Past Medical History: No History, Except For Hx Hypertension: No Hx Pacemaker: No Hx Asthma: No Hx COPD: No Hx Diabetes: No Hx Cancer: No Hx Dialysis: No History Of Psychiatric Problem: No Hx Neurological Problems: No Hx Cerebrovascular Accident: No Hx Seizures: No Review of Systems All Other Systems: negative except mentioned in HPI Physical Exam Vital Signs Date Time Temp Pulse Resp B/P Pulse Ox O2 Delivery O2 Flow Rate FiO2 10/21/16 16:06 99.5 139 20 129/79 99 Room Air Sp02 EP Interpretation: reviewed, normal General Appearance: other - spide habitus, Chronically Ill Head: normocephalic Eyes: bilateral eye PERRL, bilateral eye scleral icterus ENT: moist mucus membranes Neck: supple Respiratory: lungs clear, normal breath sounds Cardiovascular #1: regular rate, rhythm Cardiovascular #2: 2+ radial (R) Gastrointestinal: no rebound, abnormal bowel sounds - decreased, distended, tenderness - RUQ Musculoskeletal: back normal, gait/station normal, normal range of motion Neurologic: alert, oriented x3, normal gait, speech normal, other - some asterixis Psychiatric: depressed affect Skin: warm/dry, other - sallo and ecchymoses at IV sites Medical Decision Making Diagnostic Impression: Primary Impression: Right upper quadrant abdominal pain Additional Impressions: Liver failure Qualified Codes: K72.10 - Chronic hepatic failure without coma Ascites Qualified Codes: K70.31 - Alcoholic cirrhosis of liver with ascites Asterixis AMA ER Course Patient with liver disease, ascites and RUQ pain. Ddx: cholecystitis, sones, liver pain, PUD, SBP, dehydration amongst others. Not febrile or toxic, but tachycardic. Needs evaluation with labs, possible ultrasound. Treatment with IV and consideration of lactulose and analgesia. Consideration also for vitamin K. I again suggested admission to the hospital. Patient states she needs to arrange for care for her pets. Told of risk of . She understands and is competent to decide. She signed out AMA. I offered her to return if she changes her mind. Rx: lactulose. EKG Diagnostic Results Rate: tachycardiac ST Segments: no acute changes Rhythm Strip Diag. Results EP Interpretation: yes Rhythm: no PVC's, no ectopy, other - ST Status: improved Disposition: AGAINST MEDICAL ADVICE Condition: Serious Juan Khan M.D. Oct 21, 2016 17:12
[2016-10-21 17:39] VITALS: BP 120/70
--- NOTE | 2016-10-22 09:00 | Diagnostic Imaging Report ---
Indication: Abdominal distention Technique: XRAY ABDOMEN 1VIEW/KUB Comparison: None. Findings: The bowel gas pattern is nonobstructive. The bones are unremarkable. A generalized haziness is noted. There may also be separation between the right colon and the right flank stripe. The remainder the study is unremarkable. Impression: Cerrato ascites. Otherwise negative.
--- NOTE | 2016-10-26 01:00 | Cardiology Report ---
APPROVED REPORT EKG Measurement Heart [id number] 140P [id number] abnormality Abnormal ECG
== END 2016-10-21 17:41 | disposition left against medical advice (07) ==
LOC: EMR 16:55
DX: R10.11 Right upper quadrant pain (principal); K72.10 Chronic hepatic failure without coma; K74.60 Unspecified cirrhosis of liver; R18.8 Other ascites
CPT/HCPCS: 74000; 93005; 99283

== ENCOUNTER 2016-10-23 20:53 | Emergency (ER) | payer MEDICAID ==
[~2016-10-23] VITALS: Ht 175.3 cm; Wt 79.4 kg
[2016-10-23 21:20] VITALS: BP 115/70
[2016-10-23 21:35] VITALS: BP 120/74
--- NOTE | 2016-10-23 22:08 | Emergency Room Report ---
History of Present Illness General Chief Complaint: Abdominal Pain Present Illness HPI The patient's 46-year-old female who presented after increased abdominal pain. Patient reported having gradual increased abdominal distention. This had somewhat improved she began taking her diuretics. Patient prior history of liver disease secondary alcohol abuse. Patient had been recently seen was noted to have some ascites. She started on spironolactone and Lasix. Patient stated that she had been urinating well since beginning her medications. She also had been taking some lactulose which had increased to her a number of bowel movements. Patient was still intermittently drinking alcohol. Denies any any fever or severe pain. Allergies: Coded Allergies: No Known Allergies (Unverified , 10/08/16) Patient History Past Medical History: see triage record Reviewed Nursing Documentation: PMH: Agreed, PSxH: Agreed Nursing Documentation-PMH Hx Hypertension: No Hx Pacemaker: No Hx Asthma: No Hx COPD: No Hx Diabetes: No Hx Cancer: No Hx Gastrointestinal Problems: Yes - Ascites Hx Dialysis: No Hx Neurological Problems: No Hx Cerebrovascular Accident: No Hx Seizures: No Review of Systems All Other Systems: negative except mentioned in HPI Physical Exam Vital Signs Date Time Temp Pulse Resp B/P Pulse Ox O2 Delivery O2 Flow Rate FiO2 10/23/16 21:06 98.8 132 20 112/67 97 Room Air Sp02 EP Interpretation: reviewed, normal General Appearance: normal inspection, well appearing, no apparent distress, alert, GCS 15, non-toxic Head: atraumatic ENT: normal ENT inspection, hearing grossly normal, normal voice Neck: normal inspection, full range of motion, supple, no bony tend Respiratory: normal inspection, lungs clear, normal breath sounds, no respiratory distress, no retraction, no wheezing Cardiovascular #1: regular rate, rhythm, no edema Gastrointestinal: normal inspection, normal bowel sounds, non tender, soft, no guarding, no hernia Genitourinary: no CVA tenderness Musculoskeletal: normal inspection, back normal, normal range of motion Neurologic: normal inspection, alert, responsive, speech normal Psychiatric: normal inspection, judgement/insight normal, mood/affect normal Skin: normal inspection, normal color, no rash Medical Decision Making Diagnostic Impression: Primary Impression: Cirrhosis ER Course Patient presented for abdominal pain. Differential diagnoses included ischemic bowel, appendicitis, perforated viscus, abdominal aortic aneurysm, inferior myocardial infarction, viral gastroenteritis Patient's benign exam and does not appear to require any further imaging or laboratory testing at this time. Patient was advised followup with her primary care physician. She does not appear to have tense ascites at this time and appears to be breathing well. She does not have any significant abdominal tenderness at this time. Last Vital Signs Date Time Temp Pulse Resp B/P Pulse Ox O2 Delivery O2 Flow Rate FiO2 10/23/16 21:06 98.8 132 20 112/67 97 Room Air Status: unchanged Disposition: HOME, SELF-CARE Condition: Stable Referrals: NOT CHOSEN IPA/,REFERRING (PCP) Patient Instructions: Cirrhosis Uri Gallegos Oct 23, 2016 22:08
== END 2016-10-23 21:40 | disposition home or self-care (01) ==
LOC: EMR 21:40
DX: K74.60 Unspecified cirrhosis of liver (principal)
CPT/HCPCS: 99282

== ENCOUNTER 2016-11-06 19:58 | Emergency (ER) | payer MEDICAID ==
[~2016-11-06] VITALS: Ht 175.3 cm; Wt 79.4 kg
[2016-11-06 21:21] LABS: MEAN CORPUSCULAR HEMOGLOBIN 38.1 PG (27.0-31.0); MEAN CORPUSCULAR HGB CONC 35.4 G/DL (32.0-36.0); MEAN CORPUSCULAR VOLUME 108 FL (80-99); MEAN PLATELET VOLUME 8.5 FL (6.5-10.1); PLATELET COUNT 82 K/UL (150-450); RED BLOOD COUNT 2.58 M/UL (4.20-5.40); RED CELL DISTRIBUTION WIDTH 12.4 % (11.6-14.8); WHITE BLOOD COUNT 9.6 K/UL (4.8-10.8)
[2016-11-06 21:21] LABS: APPEARANCE,URINE CLEAR; KETONES,URINE NEGATIVE (NEGATIVE); LEUKOCYTE ESTERASE ,URINE 3+ (NEGATIVE); NITRITE,URINE NEGATIVE (NEGATIVE); PH,URINE 6.5 (4.5-8.0); PROTEIN,URINE NEGATIVE (NEGATIVE); UROBILINOGEN,URINE 1 MG/DL (0.0-1.0)
[2016-11-06 21:27] LABS: ALANINE AMINOTRANSFERASE 19 U/L (3-33); ALBUMIN/GLOBULIN RATIO 0.3 (1.0-2.7); ANION GAP 9 (5-15); ASPARTATE AMINO TRANSFERASE 167 U/L (5-40); CALCIUM 7.4 mg/dL (8.6-10.2); CARBON DIOXIDE 31 mEQ/L (20-30); CHLORIDE 98 mEQ/L (98-107); CREATININE 0.4 mg/dL (0.5-0.9); GLOMERULAR FILTRATION RATE > 60 mL/min (>60); HEMOLYSIS 3; INR 1.7 (0.9-1.1); LIPASE 21 U/L (< 60); POTASSIUM 3.5 mEQ/L (3.4-4.9); PROTHROMBIN TIME 17.8 SEC (9.30-11.50); SODIUM 138 mEQ/L (135-145); TOTAL PROTEIN 7.8 g/dL (6.6-8.7)
[2016-11-06 21:31] LABS: BACTERIA,URINE MODERATE /HPF; SQUAMOUS EPITHELIAL CELL,UR FEW /LPF (NONE/OCC)
[2016-11-06 21:39] LABS: BILIRUBIN,DIRECT 2.7 mg/dL (0.1-0.3)
[2016-11-06 22:26] LABS: BASOPHILS % (MANUAL) 1 % (0-2); EOSINOPHILS % (MANUAL) 2 % (0-3); LYMPHOCYTES % (MANUAL) 23 % (20-45); NEUTROPHILS % (MANUAL) 69 % (45-75); TOTAL CELLS COUNTED 100
[2016-11-06 22:27] LABS: ANISOCYTOSIS 1+; BAND NEUTROPHILS % (MANUAL) 0 % (0-8); HYPOCHROMASIA 1+; MACROCYTES 1+; PLATELET ESTIMATE DECREASED; PLATELET MORPHOLOGY NORMAL
[2016-11-06] MEDS ORDERED: cefTRIAXone 1 GM in NS 55 ML IVPB ONE (22:45)
[2016-11-06] MEDS ORDERED: Zolpidem 5mg tab ORAL PRN (23:15)
[2016-11-06] MEDS ORDERED: Miralax 17gm pkt ORAL PRN (23:15)
[2016-11-06] MEDS ORDERED: LORazepam Inj 2mg/ml 1ml IV PRN (23:15)
[2016-11-06] MEDS ORDERED: Morphine Sulfate 2mg/ml Inj IVP PRN (23:15)
[2016-11-06] MEDS ORDERED: Mylanta II UD 30ml ORAL PRN (23:15)
[2016-11-06] MEDS ORDERED: KEFLEX500 MG ORAL (23:28)
[2016-11-06 23:47] VITALS: BP 113/71
[2016-11-07] MEDS ORDERED: Lactulose 20gm/30ml UDC ORAL SCH
[2016-11-07 00:05] VITALS: BP 113/71
--- NOTE | 2016-11-07 00:09 | Emergency Room Report ---
History of Present Illness General Chief Complaint: Abdominal Pain Source: Patient Present Illness HPI Patient is a 46-year-old female who presented after increased bowel pain and increased distention. Patient had prior history of cirrhosis. The patient had the history of alcohol abuse. She reports recently been drinking. She denied any fever. She reported having increased abdominal distention pain. She had previous a urinary tract infection. The patient has not been vomiting. She reports being intermittently compliant with her lactulose Allergies: Coded Allergies: No Known Allergies (Unverified , 10/08/16) Patient History Past Medical History: see triage record Last Menstrual Period: n/a Reviewed Nursing Documentation: PMH: Agreed, PSxH: Agreed Nursing Documentation-PMH Past Medical History: No History, Except For Hx Hypertension: No Hx Pacemaker: No Hx Asthma: No Hx COPD: No Hx Diabetes: No Hx Cancer: No Hx Gastrointestinal Problems: Yes - Ascites Hx Dialysis: No Hx Neurological Problems: No Hx Cerebrovascular Accident: No Hx Seizures: No Review of Systems All Other Systems: negative except mentioned in HPI Physical Exam Vital Signs Date Time Temp Pulse Resp B/P Pulse Ox O2 Delivery O2 Flow Rate FiO2 11/06/16 20:10 98.2 114 16 110/76 96 Room Air Sp02 EP Interpretation: reviewed, normal General Appearance: normal inspection, well appearing, no apparent distress, alert, GCS 15 Head: atraumatic ENT: normal ENT inspection, hearing grossly normal, normal voice Neck: normal inspection, full range of motion, supple, no bony tend Respiratory: normal inspection, lungs clear, normal breath sounds, no respiratory distress, no retraction, no wheezing Cardiovascular #1: regular rate, rhythm, no edema Gastrointestinal: normal bowel sounds, non tender, soft, no guarding, no hernia , distended Genitourinary: no CVA tenderness Musculoskeletal: normal inspection, back normal, normal range of motion Neurologic: normal inspection, alert, responsive, speech normal Psychiatric: normal inspection, judgement/insight normal, mood/affect normal Skin: normal inspection, normal color, no rash Procedures Additional Procedure Procedure Narrative Paracentesis performed ultrasound guidance after informed consent was obtained. Advised patient risk of infection, persistent leaking. Bleeding among others. The patient indicated understanding and consented for procedure. Sterile prep with chlorhexidine. A sterile gloves, sterile prep and drape. At 10 mL of lidocaine 1% was injected to the right side of the abdomen. Withdrew approximately 6 L of yellow colored translucent fluid.sterile dressing was applied. The patient is observed in emergency department Medical Decision Making Diagnostic Impression: Primary Impression: Cirrhosis Additional Impression: Ascites ER Course Patient presented for abdominal pain. Differential diagnoses included ischemic bowel, appendicitis, perforated viscus, abdominal aortic aneurysm, inferior myocardial infarction, viral gastroenteritis. Because of complexity of patient' s case laboratory testing and imaging studies were ordered. paracentesis was performed at 6 L removed. Patient was given prescription for Keflex due to slight UTI. The patient is advised to follow up with primary care. Patient is advised to return if any worsening condition or if any changes in status that are concerning. Labs Test 11/06/16 20:20 11/06/16 20:53 Urine Color Brown Urine Appearance Clear Urine pH 6.5 (4.5-8.0) Urine Specific [place] 1.005 (1.005-1.035) Urine Protein Negative (NEGATIVE) Urine Glucose (UA) Negative (NEGATIVE) Urine Ketones Negative (NEGATIVE) Urine Occult Blood 1+ (NEGATIVE) Urine Nitrite Negative (NEGATIVE) Urine Bilirubin Negative (NEGATIVE) Urine Urobilinogen 1 MG/DL (0.0-1.0) Urine Leukocyte Esterase 3+ (NEGATIVE) Urine RBC 2-4 /HPF (0 - 2) Urine WBC 10-15 /HPF (0 - 2) Urine Squamous Epithelial Cells Few /LPF (NONE/OCC) Urine Bacteria Moderate /HPF (NONE) White Blood Count 9.6 K/UL (4.8-10.8) Red Blood Count 2.58 M/UL (4.20-5.40) Hemoglobin 9.8 G/DL (12.0-16.0) Hematocrit 27.7 % (37.0-47.0) Mean Corpuscular Volume 108 FL (80-99) Mean Corpuscular Hemoglobin 38.1 PG (27.0-31.0) Mean Corpuscular Hemoglobin Concent 35.4 G/DL (32.0-36.0) Red Cell Distribution Width 12.4 % (11.6-14.8) Platelet Count 82 K/UL (150-450) Mean Platelet Volume 8.5 FL (6.5-10.1) Neutrophils (%) (Auto) % (45.0-75.0) Lymphocytes (%) (Auto) % (20.0-45.0) Monocytes (%) (Auto) % (1.0-10.0) Eosinophils (%) (Auto) % (0.0-3.0) Basophils (%) (Auto) % (0.0-2.0) Differential Total Cells Counted 100 Neutrophils % (Manual) 69 % (45-75) Lymphocytes % (Manual) 23 % (20-45) Monocytes % (Manual) 5 % (1-10) Eosinophils % (Manual) 2 % (0-3) Basophils % (Manual) 1 % (0-2) Band Neutrophils 0 % (0-8) Platelet Estimate Decreased Platelet Morphology Normal Hypochromasia 1+ Anisocytosis 1+ Macrocytosis 1+ Prothrombin Time 17.8 SEC (9.30-11.50) Prothromb Time International Ratio 1.7 (0.9-1.1) Activated Partial Thromboplast Time 39 SEC (23-33) Sodium Level 138 mEQ/L (135-145) Potassium Level 3.5 mEQ/L (3.4-4.9) Chloride Level 98 mEQ/L (98-107) Carbon Dioxide Level 31 mEQ/L (20-30) Anion Gap 9 (5-15) Blood Urea Nitrogen 4 mg/dL (7-23) Creatinine 0.4 mg/dL (0.5-0.9) Estimat Glomerular Filtration Rate > 60 mL/min (>60) Glucose Level 118 mg/dL (74-106) Calcium Level 7.4 mg/dL (8.6-10.2) Total Bilirubin 5.2 mg/dL (0.0-1.2) Direct Bilirubin 2.7 mg/dL (0.1-0.3) Aspartate Amino Transf (AST/SGOT) 167 U/L (5-40) Alanine Aminotransferase (ALT/SGPT) 19 U/L (3-33) Alkaline Phosphatase 282 U/L (35-104) Total Protein 7.8 g/dL (6.6-8.7) Albumin 2.0 g/dL (3.5-5.2) Globulin 5.8 g/dL Albumin/Globulin Ratio 0.3 (1.0-2.7) Lipase 21 U/L (< 60) Last Vital Signs Date Time Temp Pulse Resp B/P Pulse Ox O2 Delivery O2 Flow Rate FiO2 11/06/16 23:47 98.2 88 16 113/71 96 Room Air Status: improved Disposition: HOME, SELF-CARE Condition: Stable Scripts Cephalexin* (KEFLEX*) 500 Mg Capsule 500 MG ORAL Q6H, #28 CAP 0 Refills Prov: Uri Gallegos 11/06/16 Referrals: NOT CHOSEN IPA/MD,REFERRING (PCP) Patient Instructions: Uri Barrera Nov 07, 2016 00:09
[2016-11-07] MEDS ORDERED: Cefepime HCl 1 GM in D5W 55 ML IV SCH (06:00)
== END 2016-11-07 00:09 | disposition home or self-care (01) ==
LOC: EMR 20:42
DX: K70.31 Alcoholic cirrhosis of liver with ascites (principal); F10.10 Alcohol abuse, uncomplicated; Z87.440 Personal history of urinary (tract) infections
CPT/HCPCS: 36415; 49083; 80053; 81003; 82248; 83690; 85007; 85025; 85610; 85730; 87086; 87181; 99284; Z7502

== ENCOUNTER 2016-12-01 22:46 | Emergency (ER) | payer MEDICAID ==
[~2016-12-01] VITALS: Ht 167.6 cm; Wt 72.6 kg
[~2016-12-01 22:46] MED LIST changes: +KEFLEX500 MG ORAL
[2016-12-02] MEDS ORDERED: chlordiazePOXIDE 25mg Cap ORAL ONE (00:30)
[2016-12-02 00:37] VITALS: BP 111/83
[2016-12-02] MEDS ORDERED: LIBRIUM25 MG ORAL (00:49)
--- NOTE | 2016-12-02 00:49 | Emergency Room Report ---
History of Present Illness General Chief Complaint: General Complaint Source: Patient Present Illness HPI This is a 46-year-old female with a history of cirrhosis and ascites secondary to alcohol abuse. She still drinking. She said she wants to quit but get very shaky in the morning. She presents with abdominal distention and ascites. She is asking for a paracentesis. No fever chills but no nausea no vomiting. Nothing any medication. Denies any other complaint. Waiting to see a GI specialist. Allergies: Coded Allergies: No Known Allergies (Unverified , 10/08/16) Patient History Past Medical History: see triage record, old chart reviewed Past Surgical History: other Pertinent Family History: none Social History: Reports: alcohol use, drug use Now: No Immunizations: other Reviewed Nursing Documentation: PMH: Agreed, PSxH: Agreed Nursing Documentation-PMH Hx Hypertension: No Hx Pacemaker: No Hx Asthma: No Hx COPD: No Hx Diabetes: No Hx Cancer: No Hx Gastrointestinal Problems: Yes - Ascites Hx Dialysis: No Hx Neurological Problems: No Hx Cerebrovascular Accident: No Hx Seizures: No Review of Systems Eye: Denies: eye pain, blurred vision ENT: Denies: ear pain, nose congestion, throat swelling Respiratory: Denies: cough, shortness of breath Cardiovascular: Denies: chest pain, palpitations Gastrointestinal: Denies: abdominal pain, diarrhea, nausea, vomiting Musculoskeletal: Denies: back pain, joint pain Skin: Denies: rash Neurological: Denies: headache, numbness Endocrine: Denies: increased thirst, increased urine Hematologic/Lymphatic: Denies: easy bruising All Other Systems: negative except mentioned in HPI Physical Exam Vital Signs Date Time Temp Pulse Resp B/P (MAP) Pulse Ox O2 Delivery O2 Flow Rate FiO2 12/01/16 22:56 98.4 102 18 130/70 98 Room Air vitals normal Sp02 EP Interpretation: reviewed, normal General Appearance: well appearing, no apparent distress, alert Head: normocephalic, atraumatic Eyes: bilateral eye PERRL, bilateral eye EOMI, bilateral eye scleral icterus ENT: hearing grossly normal, normal pharynx Neck: full range of motion, supple, no meningismus Respiratory: chest non-tender, lungs clear, normal breath sounds Cardiovascular #1: regular rate, rhythm, no murmur Gastrointestinal: normal bowel sounds, non tender, no mass, no organomegaly, no bruit, non-distended, distended - With ascites Musculoskeletal: back normal, gait/station normal, normal range of motion Psychiatric: mood/affect normal Skin: warm/dry, jaundice Procedures Additional Procedure Procedure Narrative Procedure: Paracentesis Indication: Tense ascites Description: Right lower quadrant area clean with chlorhexidine. Local anesthetic with 1% lidocaine. Using a paracentesis kit, I placed a paracentesis catheter. The seat fluid drained. A total of about 4 L drained. Patient tolerated procedure without a problem. No complication. She felt better. Medical Decision Making Diagnostic Impression: Primary Impression: Ascites Qualified Codes: K70.31 - Alcoholic cirrhosis of liver with ascites Additional Impressions: Cirrhosis Qualified Codes: K70.31 - Alcoholic cirrhosis of liver with ascites Alcohol dependence Qualified Codes: F10.20 - Alcohol dependence, uncomplicated ER Course Patient with ascites secondary to cirrhosis. She felt better now. I will put her on Librium also. Last Vital Signs Date Time Temp Pulse Resp B/P (MAP) Pulse Ox O2 Delivery O2 Flow Rate FiO2 12/02/16 00:37 98.4 102 16 111/83 95 Room Air Status: improved Disposition: HOME, SELF-CARE Condition: Stable Scripts Chlordiazepoxide (Chlordiazepoxide HCl) 25 Mg Capsule 25 MG ORAL THREE TIMES A DAY, #15 CAP 0 Refills Prov: LUIS GARNER M.D. 12/02/16 Additional Instructions: Abstain from alcohol and drugs. Followup with your DrTerry in 7 days. Return if symptom worsen. LUIS GARNER M.D. Dec 02, 2016 00:49
[2016-12-02] MEDS ORDERED: LACTULOSE20 GM/301 ORAL (01:38)
[2016-12-02 01:45] VITALS: BP 111/71
[2016-12-02 01:46] VITALS: BP 111/83
== END 2016-12-02 01:45 | disposition home or self-care (01) ==
LOC: EMR 23:05
DX: K70.31 Alcoholic cirrhosis of liver with ascites (principal); F10.20 Alcohol dependence, uncomplicated
CPT/HCPCS: 49082; 99284; Z7502